=== PATIENT | female | born 1930 | race Caucasian/White ===

== ENCOUNTER 2016-11-15 09:05 | Observation (INO) | payer MEDICARE ==
[2016-11-15 09:14] VITALS: BMI 22.4
[2016-11-15] MEDS ORDERED: SODIUM CHLORIDE 0.9% 3 ML FLUSH FLUSH PRN (09:38)
[2016-11-15] MEDS ORDERED: NS 1,000 ML IV ONE ×2 (09:39)
--- NOTE | 2016-11-15 09:50 | EDPRACDOC ---
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 PT DENIES CP AND SOB AT THIS TIME. Symptoms Started: Reports: Gradually Symptoms Description: Constant Weakness: Bilateral: Generalized Symptoms: Reports: Weak Symptom Severity: Reports: Unable to performs ADL's Associated signs and symptoms:: Reports: GI Bleed (POSSIBLE HAVING DARKER THAN NORMAL STOOLS, BUT NO VISIBLE BLOOD PER RECTUM) <Yudith Rome - Last Filed: 11/15/16 14:41> - General Information Chief Complaint: Generalized Weakness Stated Complaint: WEAKNESS Time Seen by Provider: 11/15/16 09:31 Home Medications: Home Medications Aspirin [Aspirin EC] 81 mg PO DAILY 01/08/14 Furosemide 40 mg PO BID 01/08/14 Acetaminophen/Diphenhydramine [Tylenol Pm Ex-Strength Caplet] 1 each PO HS PRN 11/15/16 Allopurinol [Zyloprim] 100 mg PO BID 11/15/16 Losartan Potassium [Cozaar] 50 mg PO DAILY 11/15/16 Metoprolol Tartrate [Lopressor] 50 mg PO BID 11/15/16 Mirtazapine [Remeron] 15 mg PO HS 11/15/16 Allergies/Adverse Reactions: Allergies Allergy/AdvReac Type Severity Reaction Status Date / Time Penicillins Allergy Unknown Dizziness Verified 11/15/16 09:13 ED Past Medical History - History Reviewed Yes Nurses notes reviewed and agree except as marked Travel Outside of [place] in the Last 3 Months?: No - Patient Medical History Cardiac History: Reports: Hypertension, Heart Attack GI/ History: Reports: Urinary Tract Infection Psychological History: Denies: Depression Systemic History: Denies: Cancer Surgical History: Reports: Hysterectomy - Family Medical History Reports: Hypertension, Cancer - Social Medical History Smoking Status: Former smoker ETOH: None Substance Abuse: None Lives With: Other Lives In: Home <Yudith Rome - Last Filed: 11/15/16 14:41> EDM Review of Systems - Review of Systems ROS Negative Except as Marked: Yes All systems reviewed and were negative except as marked Constitutional: Fatigue, Weakness. negative: Chills, Fever, Loss of Appetite Eyes: No Symptoms Reported. negative: Redness, Blurred Vision, Double Vision, Discharge, Pain, Light Sensitive, Photophobia Ears: No Symptoms Reported. negative: Pain, Hearing Loss, Drainage, Ear Pulling Throat: No Symptoms Reported. negative: Pain, Swelling Nose: No Symptoms Reported. negative: Congestion, Bleeding, Discharge, Injection, Swelling, Deformity, Ecchymosis, Tender, Abrasion, Laceration Mouth: No Symptoms Reported. negative: Pain, Drooling Respiratory: No Symptoms Reported. negative: Cough, Brassy Cough, Barky Cough, Shortness of Breath, Wheezing, Hemoptysis Cardiovascular: No Symptoms Reported. negative: Chest Pain, Palpitations, Syncope, Edema, Orthopnea, PND, Skin Mottling, Cyanosis Gastrointestinal: Other (DARKER THAN NORMAL STOOLS FOR SEVERAL DAYS). negative : Constipation, Diarrhea, Formula Intolerance, Melena, Nausea, Pain, Vomiting Genitourinary: No Symptoms Reported. negative: Dysuria, Hematuria, Frequency, Discharge, Bleeding, Testicular Pain, Neurological: No Symptoms Reported. negative: Headache, Dizziness, Seizure, Numbness, Weakness, Speech Difficulty, Gait Difficulty Musculoskeletal: No Symptoms Reported. negative: Neck, Chestwall, Ribs, Back, Shoulder, Arm, Elbow, Forearm, Wrist, Hand, Pelvis, Hip, Femur, Knee, Leg, Ankle , Foot Integumentary: No Symptoms Reported. negative: Itching, Rash, Bruising, Wound Allergic/Immunologic: No Symptoms Reported. negative: Hives, Itching Hematologic: No Symptoms Reported. negative: Lymphadenopathy, Easy Bruising, Easy Bleeding Endocrine: No Symptoms Reported. negative: Weight Gain, Weight Loss Psychiatric: No Symptoms Reported. negative: Anxiety, Depression, Hallucinations, Insomnia, Suicidal <Yudith Rome - Last Filed: 11/15/16 14:41> - Physical Exam Last recorded Vital Signs: Last Vital Signs Temp 97.6 F 11/15/16 09:10 Pulse 61 11/15/16 11:08 Resp 18 11/15/16 11:08 BP 154/64 11/15/16 11:08 Pulse Ox 97 11/15/16 11:08 Oxygen Pulse Oxygen Saturation 97 O2 Device Room Air Oxygen Flow Rate Fraction of Inspired Oxygen ( FIO2) <Raquel Zhao - Last Filed: 11/15/16 11:56> - Physical Exam Constitutional: No apparent distress, Alert (Awake) Oriented to: Time, Person, Place Last recorded Vital Signs: Last Vital Signs Temp 97.6 F 11/15/16 09:10 Pulse 61 11/15/16 09:10 Resp 18 11/15/16 09:10 BP 153/67 11/15/16 09:10 Pulse Ox 97 11/15/16 09:10 Oxygen Pulse Oxygen Saturation 97 O2 Device Room Air Oxygen Flow Rate Fraction of Inspired Oxygen ( FIO2) - HEENT Head: Normal ( normocephalic) Eye Exam: Pale Conjunctiva Oropharynx: Normal (Pharynx:Moist without exudate,Gums-no swelling) Tympanic Membrane: Normal ENT EAC: Normal TMJ: Normal Nose: No Symptoms Reported (septum midline) Neck: Normal (FROM, trachea at midline) - Respiratory/Cardiovascular Respiratory: Normal - CTA (BBS clear to auscultation without adventitious sounds ) Cardiovascular: Normal (RRR without murmur, gallop or rub) - GI Auscultation: Normal (NABS) Palpation: Normal (Soft,No rebound or guarding, non distended) Tenderness: Non tender Apple's Sign: Negative Rectal Exam: Heme negative stool - Bladder: Normal - Musculoskeletal Back: Normal (Non-Tender) Extremities: Normal (Normal tone, Pulses 2+ No cyanosis or edema, FROM) - Integumentary Skin: Normal, Warm, Dry Lymphatics: Normal (no adenopathy) - Neurologic Memory Impaired: Normal Motor Function: Normal (Normal tone, Pulses 2+ No cyanosis or edema, FROM) Cranial Nerve: Normal (CN II-X11 intact sensation, strength 5/5) Cerebellar: Normal Mood Description: Normal Perception: Normal <Yudith Rome - Last Filed: 11/15/16 14:41> - Re-evaluation Re-evaluation 1 Re-evaluation Time: 11:09 PATIENT REPORTS BLACK TARRY STOOLS FOR NEARLY 2 WEEKS (HOWEVER GUAIAC NEGATIVE ON RECTAL EXAM TODAY) GIVEN HER HISTORY OF CONGESTIVE HEART FAILURE, CURRENT DYSPNEA ON EXERTION, THE NEED FOR MULTIPLE BLOOD UNITS TODAY I HAVE RECOMMENDED THAT SHE HAVE THIS PERFORMED AN INPATIENT. HOWEVER SHE IS EXTREMELY RELUCTANT TO BE ADMITTED TO THE HOSPITAL STATES SHE HAS THINGS TO TAKE CARE OF AT HOME. THIS IS DESPITE FAMILY'S REQUEST FOR HER TO STAY IN THE HOSPITAL. CURRENT PLAN IS TO TRANSFUSE 1 UNIT OF BLOOD EMERGED FROM DISCHARGE HOME. THIS IS BASED ON PATIENT'S REQUEST. RISKS BENEFITS ALTERNATIVES HAVE BEEN DISCUSSED. - Results 11/15/16 09:28 11/15/16 09:28 WBC 5.2 xk/uL (3.8-10.8) 11/15/16 09:28 RBC 2.72 xM/uL (4.20-5.40) L 11/15/16 09:28 Hgb 7.5 g/dL (12.0-16.0) L 11/15/16 09:28 Hct 23.7 % (36-47) L 11/15/16 09:28 MCV 87 fL (81-99) 11/15/16 09:28 MCH 27.7 pg (27-32) 11/15/16 09:28 MCHC 31.7 g/dl (33-36) L 11/15/16 09:28 RDW 15.3 % (11.5-14.5) H 11/15/16 09:28 Plt Count 144 xk/uL (130-400) 11/15/16 09:28 MPV 8.0 fL (7.4-10.4) 11/15/16 09:28 Neut % (Auto) Cancelled 11/15/16 09:28 Lymph % (Auto) Cancelled 11/15/16 09:28 [place] % (Auto) Cancelled 11/15/16 09:28 Eos % (Auto) Cancelled 11/15/16 09:28 Baso % (Auto) Cancelled 11/15/16 09:28 Absolute Neuts (auto) Cancelled 11/15/16 09:28 Absolute Lymphs (auto) Cancelled 11/15/16 09:28 Seg Neuts % (Manual) 56 % (45-76) 11/15/16 09:28 Band Neutrophils % 0 % (0-5) 11/15/16 09:28 Lymphocytes % (Manual) 26 % (17-44) 11/15/16 09:28 Monocytes % (Manual) 11 % (0-10) H 11/15/16 09:28 Eosinophils % (Manual) 5 % (0-5) 11/15/16 09:28 Basophils % (Manual) 2 % (0-2) 11/15/16 09:28 Absolute Neutrophils 2.91 xk/uL (1.7-8.2) 11/15/16 09:28 Absolute Lymphocytes 1.35 xk/uL (0.65-4.75) 11/15/16 09:28 Platelet Estimate Norm (NORMAL) 11/15/16 09:28 RBC Morphology 1+ hypo 1+ aniso 11/15/16 09:28 RBC Morphology 1+ hypo 1+ aniso 11/15/16 09:28 PT 11.0 SEC (9.2-11.2) 11/15/16 09:28 INR 1.1 11/15/16 09:28 APTT 22.9 SEC (22-35) 11/15/16 09:28 Sodium 138 mEq/L (137-146) 11/15/16 09:28 Potassium 3.9 mEq/L (3.5-5.1) 11/15/16 09:28 Chloride 103 mEq/L (98-107) 11/15/16 09:28 Carbon Dioxide 23 mMOL/L (22-33) 11/15/16 09:28 Anion Gap 16 mEq/L (8-16) 11/15/16 09:28 BUN 52 MG/DL (7-17) H 11/15/16 09:28 Creatinine 2.50 MG/DL (0.52-1.04) H 11/15/16 09:28 Estimated GFR (MDRD) 18 mL/min (>=60) L 11/15/16 09:28 Glucose 134 MG/DL (70-99) H 11/15/16 09:28 Calculated Osmolality 282 MOs/Kg (270-290) 11/15/16 09:28 Calcium 9.6 MG/DL (8.4-10.2) 11/15/16 09:28 Total Bilirubin 1.0 MG/DL (0.2-1.3) 11/15/16 09:28 AST 34 IU/L (14-36) 11/15/16 09:28 ALT 28 IU/L (9-52) 11/15/16 09:28 Alkaline Phosphatase 60 IU/L (55-165) 11/15/16 09:28 Creatine Kinase 114 IU/L (30-134) 11/15/16 09:28 Myoglobin 121.2 ng/mL (0-101) H 11/15/16 09:28 Troponin I < 0.01 ng/mL (<.04) 11/15/16 09:28 Rxe-C-Rhnkcdeobdk Pept 5230 pg/mL (0-1800) H 11/15/16 09:28 Total Protein 7.3 G/DL (6.3-8.2) 11/15/16 09:28 Albumin 4.3 G/DL (3.5-5.0) 11/15/16 09:28 Urine Color Dark yellow 11/15/16 09:30 Urine Clarity Cldy 11/15/16 09:30 Urine pH 6.0 (5.0-8.0) 11/15/16 09:30 Ur Specific [place] 1.020 (1.003-1.035) 11/15/16 09:30 Urine Protein 1+ (NEG/TRACE) H 11/15/16 09:30 Urine Glucose (UA) Neg (NEGATIVE) 11/15/16 09:30 Urine Ketones Neg (NEGATIVE) 11/15/16 09:30 Urine Occult Blood 3+ (NEG/TRACE) H 11/15/16 09:30 Urine Nitrite Neg (NEGATIVE) 11/15/16 09:30 Urine Bilirubin Neg (NEGATIVE) 11/15/16 09:30 Urine Urobilinogen 0.2 MG/DL (0-1) 11/15/16 09:30 Ur Leukocyte Esterase Neg (NEGATIVE) 11/15/16 09:30 Urine RBC 10-20 (0-5) H 11/15/16 09:30 Urine WBC 10-20 (0-5) H 11/15/16 09:30 Ur Epithelial Cells 3+ 11/15/16 09:30 Urine Bacteria 2+ (NEG/FEW) H 11/15/16 09:30 Hyaline Casts 5-10 (0-2) H 11/15/16 09:30 Blood Type A POSITIVE 11/15/16 09:28 Antibody Screen Negative 11/15/16 09:28 Lab Results 11/15/16 11/15/16 11/15/16 09:30 09:28 09:28 WBC 5.2 RBC 2.72 L Hgb 7.5 L Hct 23.7 L MCV 87 MCH 27.7 MCHC 31.7 L RDW 15.3 H Plt Count 144 MPV 8.0 Neut % (Auto) Cancelled Lymph % (Auto) Cancelled [place] % (Auto) Cancelled Eos % (Auto) Cancelled Baso % (Auto) Cancelled Absolute Neuts (auto) Cancelled Absolute Lymphs (auto) Cancelled Seg Neuts % (Manual) 56 Band Neutrophils % 0 Lymphocytes % (Manual) 26 Monocytes % (Manual) 11 H Eosinophils % (Manual) 5 Basophils % (Manual) 2 Absolute Neutrophils 2.91 Absolute Lymphocytes 1.35 Platelet Estimate Norm RBC Morphology 1+ aniso PT 11.0 INR 1.1 APTT 22.9 Sodium Potassium Chloride Carbon Dioxide Anion Gap BUN Creatinine Estimated GFR (MDRD) Glucose Calculated Osmolality Calcium Total Bilirubin AST ALT Alkaline Phosphatase Creatine Kinase Myoglobin Troponin I Bvn-V-Ogucxthaurj Pept Total Protein Albumin Urine Color Dark yellow Urine Clarity Cldy Urine pH 6.0 Ur Specific [place] 1.020 Urine Protein 1+ H Urine Glucose (UA) Neg Urine Ketones Neg Urine Occult Blood 3+ H Urine Nitrite Neg Urine Bilirubin Neg Urine Urobilinogen 0.2 Ur Leukocyte Esterase Neg Urine RBC 10-20 H Urine WBC 10-20 H Ur Epithelial Cells 3+ Urine Bacteria 2+ H Hyaline Casts 5-10 H Blood Type Antibody Screen 11/15/16 11/15/16 09:28 09:28 WBC RBC Hgb Hct MCV MCH MCHC RDW Plt Count MPV Neut % (Auto) Lymph % (Auto) [place] % (Auto) Eos % (Auto) Baso % (Auto) Absolute Neuts (auto) Absolute Lymphs (auto) Seg Neuts % (Manual) Band Neutrophils % Lymphocytes % (Manual) Monocytes % (Manual) Eosinophils % (Manual) Basophils % (Manual) Absolute Neutrophils Absolute Lymphocytes Platelet Estimate RBC Morphology PT INR APTT Sodium 138 Potassium 3.9 Chloride 103 Carbon Dioxide 23 Anion Gap 16 BUN 52 H Creatinine 2.50 H Estimated GFR (MDRD) 18 L Glucose 134 H Calculated Osmolality 282 Calcium 9.6 Total Bilirubin 1.0 AST 34 ALT 28 Alkaline Phosphatase 60 Creatine Kinase 114 Myoglobin 121.2 H Troponin I < 0.01 Hpf-K-Ftaxaucgdjs Pept 5230 H Total Protein 7.3 Albumin 4.3 Urine Color Urine Clarity Urine pH Ur Specific [place] Urine Protein Urine Glucose (UA) Urine Ketones Urine Occult Blood Urine Nitrite Urine Bilirubin Urine Urobilinogen Ur Leukocyte Esterase Urine RBC Urine WBC Ur Epithelial Cells Urine Bacteria Hyaline Casts Blood Type A POSITIVE Antibody Screen Negative - Additional Information ANEMIA DDX: CHRONIC DISEASE, BLOOD LOSS, DEFIECIENCY <Raquel Zhao - Last Filed: 11/15/16 11:56> - Differential Diagnosis Anemia, Dehydration, Electrolyte disorder, Other (LOWER GI BLEED, HEMATURIA) - Results 11/15/16 09:28 11/15/16 09:28 - Additional Information ECHOCARDIOGRAM: 08/26/16 CONCLUSIONS 1. Overall left ventricular systolic function is normal with, an EF between 60 - 65 %. 2. The left atrium is markedly dilated. 3. The right atrium is mildly enlarged. 4. Moderate mitral regurgitation is present. 5. Moderate tricuspid regurgitation present. <Yudith Rome - Last Filed: 11/15/16 14:41> - Departure Yes I personally saw and evaluated the patient. Disposition: Admit IP To This Hospital Decision to Admit Time: 11:56 Decision to admit date: 11/15/16 Decision to admit: from ED - Physician Consulted GI Time Called: 11:50 Provider Called: Mayco Khalil Time Electric Powerline Examiner Returned Call: 11:50 (WILL SEE IF CONSULTED) Hospitalist Time Called: 11:51 Provider Called: Vilma Becerril Time Electric Powerline Examiner Returned Call: 11:56 <Raquel Zhao - Last Filed: 11/15/16 11:56> <Yudith Rome - Last Filed: 11/15/16 14:41> - Departure Final Diagnosis: Dyspnea on exertion, Renal insufficiency Anemia Qualifiers: Anemia type: other cause Other causes of anemia: other cause, not classified Qualified Code(s): D64.89 - Other specified anemias
[2016-11-15 10:11] LABS: LEUKOCYTES/URINE NEG (NEGATIVE); NITRITE/URINE NEG (NEGATIVE); URINE OCCULT BLOOD 3+ (NEG/TRACE)
[2016-11-15 10:11] LABS: PARTIAL THROMB. TIME 22.9 SEC (22-35); PT-INR 1.1
[2016-11-15 10:13] LABS: BLOOD UREA NITROGEN 52 MG/DL (7-17); CALCIUM 9.6 MG/DL (8.4-10.2); CALCULATED OSMOLALITY 282 MOs/Kg (270-290); CHLORIDE 103 mEq/L (98-107); CPK TOTAL WITH POSSIBLE MB 114 IU/L (30-134); GLUCOSE 134 MG/DL (70-99); SODIUM LEVEL 138 mEq/L (137-146); TOTAL PROTEIN 7.3 G/DL (6.3-8.2)
[2016-11-15 10:22] LABS: SEG NEUTROPHIL 56 % (45-76)
--- NOTE | 2016-11-15 11:00 | DIRPT ---
CLINICAL DATA: Weakness, fatigue for several days. EXAM: PORTABLE CHEST 1 VIEW COMPARISON: 01/08/2014 FINDINGS: There is no focal parenchymal opacity. There is no pleural effusion or pneumothorax. The heart and mediastinal contours are unremarkable. There is thoracic aortic atherosclerosis. The osseous structures are unremarkable. IMPRESSION: No active disease. Electronically Signed By: Chaparrita Sherman On: 11/15/2016 10:57
[2016-11-15] MEDS ORDERED: PANTOPRAZOLE 40 MG VIAL IV ONE (11:56)
[2016-11-15] MEDS ORDERED: ACETAMINOPHEN 325 MG/TAB TABLET PO PRN (12:06)
[2016-11-15] MEDS ORDERED: ONDANSETRON HCL 4 MG/2 ML VIAL IV PRN (12:06)
[2016-11-15] MEDS ORDERED: Albuterol/Ipratropium Neb 3 ML NEB NEB PRN (12:06)
--- NOTE | 2016-11-15 12:50 | HISTPHYS ---
- Chief Complaint Weakness - History of Present Illness This is an 86-year-old woman who takes a daily aspirin is being admitted to the hospital due to suspected upper GI bleed. She has been feeling weak for the last couple of weeks, and also noted that she has been having very dark colored stools. No abdominal pain, nausea, vomiting, fevers, chills. She does take a daily aspirin. No other new medications, not on any other blood thinners. She has also been having some associated dizziness, but no chest pain and no falls or syncope. Here in the emergency department, she was found to have significantly low hemoglobin compared to her prior baseline. The patient tells me that she has seen Dr. Khalil of Gastroenterology in the past for regular screening colonoscopies, she does not recall any significant abnormalities being found. She has never had EGD. Emergency department ordered 2 units of blood to be transfused, IV ppi, and consulted the hospitalist group for further evaluation and inpatient management. - Medical History Cardiac History: Reports: Hypertension, Heart Attack GI/ History: Reports: Urinary Tract Infection Systemic History: Denies: Cancer Psychological History: Denies: Depression - Surgical History Reports: Hysterectomy - Medictions/Allergies Allergies Penicillins Allergy (Unknown, Verified 11/15/16 09:13) Dizziness pt. states that they "faint" when taking this medication Home Medications Aspirin [Aspirin EC] 81 mg PO DAILY 01/08/14 Furosemide 40 mg PO BID 01/08/14 Acetaminophen/Diphenhydramine [Tylenol Pm Ex-Strength Caplet] 1 each PO HS PRN 11/15/16 Allopurinol [Zyloprim] 100 mg PO BID 11/15/16 Losartan Potassium [Cozaar] 50 mg PO DAILY 11/15/16 Metoprolol Tartrate [Lopressor] 50 mg PO BID 11/15/16 Mirtazapine [Remeron] 15 mg PO HS 11/15/16 - Family History Reports: Hypertension, Cancer - Social History Smoking Status: Former smoker - Review of Systems Yes All systems reviewed and were negative except as marked (And as mentioned in the history of present illness above.) - Physical Exam Vital Signs: Initial Vitals Temperature 97.6 F 11/15/16 09:10 Pulse Rate 61 11/15/16 09:10 Respiratory Rate 18 11/15/16 09:10 Blood Pressure 153/67 11/15/16 09:10 Pulse Oxygen Saturation 97 11/15/16 09:10 Constitutional: Alert (Awake, Fully oriented, well appearing. No apparent distress) Oriented to: Time, Person, Place Exam: Pale and tired appearing. - HEENT Head: Normal (normocephalic,atraumatic, trachea midline) Eye: Normal (EOMI, Sclera white) Oropharynx: Normal (moist) Nose: No Symptoms Reported (without discharge or bleeding) Respiratory: Normal - CTA (Clear to auscultation bilaterally, no wheezing,rales or rhonchi. No use of accessory muscles) Cardiovascular: Normal (RRR, no murmurs, rubs or gallops) - GI Palpation: Normal (soft, non distended and nontender) - Musculoskeletal Extremities: Normal (normal tone, no cyanosis or edema) - Integumentary Skin: Normal (no rashes or lesions) - Neurologic Cranial Nerve: Normal (CN II-XII intact) Mood Description: Normal (Fully oriented and appropiate affect) - Focused CV Perfusion Exam Vital Signs: Last Vital Signs Temp 97.6 F 11/15/16 09:10 Pulse 64 11/15/16 12:29 Resp 20 11/15/16 12:29 BP 157/70 11/15/16 12:29 Pulse Ox 97 11/15/16 12:29 - Lab Results Laboratory Tests 11/15/16 11/15/16 11/15/16 09:28 09:28 09:28 WBC 5.2 Hgb 7.5 L Hct 23.7 L Plt Count 144 INR 1.1 Potassium 3.9 BUN 52 H Creatinine 2.50 H - Diagnostic Findings Chest x-ray was obtained in the emergency department, without any acute abnormality. - Assessment (1) UGIB (upper gastrointestinal bleed) K92.2 - GASTROINTESTINAL HEMORRHAGE, UNSPECIFIED Acute Suspected upper GI bleed given significant anemia, and history of melena. Interestingly, her stool guaiac here was negative this morning, perhaps she has stopped bleeding spontaneously. She will be admitted to a monitored telemetry bed as an inpatient, Gastroenterology Dr. Khalil has been consulted. She will be provided a clear liquid diet tonight, and anticipate that she will be NPO after midnight tonight for any diagnostic studies planned by the director public policy. (2) Acute blood loss anemia D62 - ACUTE POSTHEMORRHAGIC ANEMIA Acute Significant drop in hemoglobin. The chest pain or syncope. Start the patient on IV PPI twice daily. She will be transfused 2 units of blood today. Will monitor hemoglobin q 12 hours afterwards. Avoid any blood thinners. (3) Hypertension I10 - ESSENTIAL (PRIMARY) HYPERTENSION Acute Continue patient's home antihypertensive medications, but will reduce doses in case of hemorrhage associated hypotension. (4) Chronic kidney disease, stage III (moderate) N18.3 - CHRONIC KIDNEY DISEASE, STAGE 3 (MODERATE) Chronic Near baseline. Follow daily. Avoid nephro toxic agents. - Plan In summary this patient is acutely and critically ill. The patient requires treatment of vital organ failure and measures to prevent further life- threatening deterioration of the above conditions. I personally reviewed and ordered lab testing, as well as imaging. I reviewed old medical records from previous hospitalizations as available, and spent the time mentioned below in critical care of this patient including counseling and coordination of care. Case Care Discussed with: Consultants, Family, Nursing Staff Total Time: 90 Critical Care: Yes
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
[2016-11-15 14:04] LABS: % SATURATION 3.8 % (15-50)
[2016-11-15 15:03] LABS: FOLATES > 20.00 ng/mL (>2.76)
[2016-11-15] MEDS: NS 1,000 ML IV SCH (17:38)
[2016-11-15] MEDS ORDERED: SODIUM CHLORIDE 0.9% 3 ML FLUSH FLUSH SCH (18:00)
[2016-11-15] MEDS: METOPROLOL TARTRATE 25 MG TAB PO SCH (20:24)
[2016-11-15] MEDS ORDERED: MIRTAZAPINE 15 MG TAB PO SCH (21:00)
[2016-11-16] MEDS ORDERED: PANTOPRAZOLE 40 MG VIAL IV SCH
[2016-11-16 05:49] LABS: MPV 8.9 fL (7.4-10.4)
[2016-11-16 06:05] LABS: BLOOD UREA NITROGEN 43 MG/DL (7-17); CALCIUM 9.5 MG/DL (8.4-10.2); CALCULATED OSMOLALITY 278 MOs/Kg (270-290); CHLORIDE 104 mEq/L (98-107); GLUCOSE 111 MG/DL (70-99); SODIUM LEVEL 138 mEq/L (137-146)
[2016-11-16] MEDS ORDERED: DIPHENHYDRAMINE 50 MG/ML VIAL ONE (06:32)
[2016-11-16] MEDS ORDERED: MEPERIDINE 25 MG/ML TUBEX ONE (06:32)
[2016-11-16] MEDS ORDERED: MIDAZOLAM 5 MG/5 ML VIAL ONE (06:32)
--- NOTE | 2016-11-16 07:35 | HIMOPRPT ---
DATE OF PROCEDURE: 11/16/16 PROCEDURE: Esophagogastroduodenoscopy with biopsy. INDICATIONS: Iron deficiency anemia melena on aspirin therapy. INSTRUMENTS: Olympus video upper endoscope. MEDICATIONS: Versed 4 mg IV and Demerol 25 mg IV. PHYSICAL EXAMINATION: GENERAL: The patient was in no distress. VITAL SIGNS: Stable. CHEST: Clear CARDIAC: Regular rate and rhythm. ABDOMEN: [Nondistended, nontender]. NEUROLOGIC: The patient was alert and oriented. DESCRIPTION OF PROCEDURE: Ms. Townsend was placed in a left lateral position and IV sedation was given in small incremental doses for the patient's comfort for moderate sedation. The throat was anesthetized with Cetacaine spray.The endoscope was advanced without difficulty into the duodenum. ESOPHAGUS: Esophagus had gastroesophageal junction located at 37 cm. The GE junction was distended greater than 2 cm. There did appear to be a asymptomatic stricture the GE junction. The distal esophagus was not inflamed. The endoscope passed through the GE junction without resistance. STOMACH: [Stomach had had multiple small bland based ulcers and erosions in the antrum. There is no blood in the stomach. There was no active bleeding. The erosions were frequently linear the ulcers were all small less than 0.5 cm. All were located in the antrum. A small hiatal hernia was present DUODENUM: The duodenum was normal. Antral and fundal biopsies were obtained for H. pylori testing. The patient tolerated the procedure well. IMPRESSION: 1. Multiple diminutive gastric antral ulcers and erosions 2. Hiatal hernia 3. Asymptomatic distal esophageal stricture 4. No active bleeding RECOMMENDATIONS: 1. Ppi therapy chronically 2. Antacids p.r.n. 3. Barrow diet 4. Consider risk of continued aspirin therapy 5. Began supplemental iron in 1 week 6. Monitor hemoglobin 7. Awaiting H pylori testing
[2016-11-16] MEDS ORDERED: PANTOPRAZOLE 40 MG TAB PO SCH (08:00)
--- NOTE | 2016-11-16 08:59 | PCM.DCS92 ---
- Final/Secondary Discharge Diagnosis (1) UGIB (upper gastrointestinal bleed) Acute K92.2 - GASTROINTESTINAL HEMORRHAGE, UNSPECIFIED Comment: She was admitted to the hospital yesterday with suspected upper GI bleed given significant anemia, and history of melena. She is admitted to monitored bed as an inpatient, Gastroenterology Dr. Khalil was consulted and performed endoscopy. She was found to have multiple small antral erosions and ulcers. He recommends PPI therapy, discontinuation of aspirin, at least for the short term. He also recommends iron supplementation orally after 7 days. He obtained cultures for H pylori, she will follow up with him as an outpatient to follow up on these cultures. (2) Acute blood loss anemia Acute D62 - ACUTE POSTHEMORRHAGIC ANEMIA Comment: Significant drop in hemoglobin. The chest pain or syncope. We started the patient on IV PPI twice daily. She was transfused 2 units of blood after admission, tolerated this well. Will monitor hemoglobin q 12 hours afterwards. Avoid any blood thinners. (3) Hypertension Acute I10 - ESSENTIAL (PRIMARY) HYPERTENSION H Comment: Continue patient's home antihypertensive medications, but will reduce doses in case of hemorrhage associated hypotension. (4) Chronic kidney disease, stage III (moderate) Chronic N18.3 - CHRONIC KIDNEY DISEASE, STAGE 3 (MODERATE) Comment: Near baseline. Follow daily. Avoid nephro toxic agents. Discharge Disposition: Home Discharge Condition: Improved Cognitive Discharge Status: Unimpaired Fuctional Discharge Status: Independent Physician Follow up/Referrals: Jason Bender MD [Primary Care Provider] - One Week Mayco Khalil MD [Staff Physician] - One Week Home Medications / New Prescriptions: New Pantoprazole Sodium [Protonix] 40 mg PO 0600 #30 tablet Continue Furosemide 40 mg PO BID Mirtazapine [Remeron] 15 mg PO HS Allopurinol [Zyloprim] 100 mg PO BID Acetaminophen/Diphenhydramine [Tylenol Pm Ex-Strength Caplet] 1 each PO HS PRN PRN Reason: SLEEP/PAIN Metoprolol Tartrate [Lopressor] 50 mg PO BID Losartan Potassium [Cozaar] 50 mg PO DAILY Discontinued Aspirin [Aspirin EC] 81 mg PO DAILY O2 Device: Room Air Diet at Discharge: Regular Activity: No Restrictions - DC Summary Notes HPI/Notes: 86-year-old female admitted to the hospital with melena and significant anemia. She was transfused 2 units of blood, she had endoscopy which demonstrated multiple erosions and small chronic appearing ulcers. She has been started on PPI therapy, aspirin has been discontinued.Please see the hospital problems and discharge problems above for details of the hospital course including diagnostics and treatment. The plan of care including medications, prognosis, follow-up including alarm symptoms for which medical care should be sought were reviewed with the patient and any available family members/caretakers. The patient is agreeable to discharge today, and all questions were answered by me to their satisfaction. Hospital Course Note:: Discharge summary on patient named RIO BENSON admitted to [facility] on 11/15/16 by Nazario Sanz MD. Date of discharge is []. Total Time: 40 - Physical Exam Vital Signs: Last Vital Signs Temp 98.9 F 11/16/16 05:38 Pulse 62 11/16/16 08:03 Resp 16 11/16/16 08:03 BP 128/61 11/16/16 08:03 Pulse Ox 93 11/16/16 08:03 Oxygen Pulse Oxygen Saturation 93 O2 Device Room Air Oxygen Flow Rate 2 Fraction of Inspired Oxygen ( FIO2) Constitutional: No apparent distress, Alert (Awake) Oriented to: Time, Person, Place Exam: Resting comfortably in bed this morning. Denies any abdominal pain, or nausea. She is hungry and wants to eat. - HEENT Head: Normal ( normocephalic) Oropharynx: Normal (Pharynx:Moist without exudate,Gums-no swelling) Tympanic Membrane: Normal ENT EAC: Normal TMJ: Normal Nose: No Symptoms Reported (septum midline) - Respiratory/Cardiovascular Respiratory: Normal - CTA (BBS clear to auscultation without adventitious sounds ) Cardiovascular: Normal (RRR without murmur, gallop or rub) - GI Auscultation: Normal (NABS) Palpation: Normal (Soft,No rebound or guarding, non distended) Tenderness: Non tender Apple's Sign: Negative - Musculoskeletal Back: Normal (Non-Tender) Extremities: Normal (Normal tone, Pulses 2+ No cyanosis or edema, FROM) - Integumentary Skin: Normal, Warm, Dry Lymphatics: Normal (no adenopathy) - Neurologic Memory Impaired: Normal Cerebellar: Normal Mood Description: Normal Perception: Normal
[2016-11-16] MEDS ORDERED: ALLOPURINOL 100 MG TAB PO SCH (09:00)
[2016-11-16] MEDS ORDERED: LOSARTAN POTASSIUM 50 MG TAB PO SCH (09:00)
[2016-11-16] MEDS ORDERED: FERUMOXYTOL 510 MG in NS 100 ML IV ONE (10:00)
[2016-11-16] MEDS: METOPROLOL TARTRATE 25 MG TAB PO SCH (10:27)
[2016-11-16 11:20] VITALS: TEMP 97.6
[2016-11-16] MEDS: NS 1,000 ML IV SCH (12:13)
[2016-11-16 14:23] VITALS: BP 139/63
[2016-11-16 15:19] VITALS: PULSE 72
== END 2016-11-16 15:16 | disposition home or self-care (01) ==
LOC: ED 09:05 → INTOOBSV 12:10 → PCU 12:10
PROVIDERS: ADMIT Internal Medicine; ATTEND Internal Medicine
DX: K92.1 Melena (principal); D62 Acute posthemorrhagic anemia; K44.9 Diaphragmatic hernia without obstruction or gangrene; K25.9 Gastric ulcer, unspecified as acute or chronic, without hemorrhage or perforation; K22.2 Esophageal obstruction; I12.9 Hypertensive chronic kidney disease with stage 1 through stage 4 chronic kidney disease, or unspecified chronic kidney disease; N18.3 Chronic kidney disease, stage 3 (moderate); Z79.82 Long term (current) use of aspirin; Z79.899 Other long term (current) drug therapy
CPT/HCPCS: 36415; 36430; 43239; 71010; 80048; 80053; 81001; 82270; 82550; 82607; 82728; 82746; 83540; 83550; 83874; 83880; 84484; 85007; 85014; 85018; 85027; 85610; 85730; 86850; 86900; 86901; 86920; 87077; 87081; 87086; 87186; 93005; 96361; 96374; 99152; 99153; 99284; A9270; G0237; G0378; J2250; J3490; J7030; P9016; Q0138; J1200; J2175; S0164